=== PATIENT | female | born 1965 | race Caucasian/White ===

== ENCOUNTER 2017-03-16 09:34 | Emergency (ER) | payer BC, OTHER ==
[~2017-03-16] VITALS: Ht 165.1 cm; Wt 102.0 kg
[~2017-03-16 09:34] MED LIST: CO Q100C9 PO; FIORTAB4 PO; HYZA50TA2 PO; LORA10TA PO; PERC10TA27 PO; PROM25TA5 PO; SYNT175T PO; TAB-TAB PO
[2017-03-16 09:43] VITALS: BP 204/101; PULSE 98; RESP 17; TEMP 97.9; O2SAT 98
[2017-03-16] MEDS ORDERED: SODIUM CHLOR 0.9% 1000 ML INJ 1,000 ML IV ONE (09:45)
[2017-03-16] MEDS ORDERED: PROCHLORPERAZINE INJ 10 MG/2 ML VIAL IV PUSH ONE (09:45)
[2017-03-16] MEDS ORDERED: diphenhydrAMINE HCL 50 MG/ML VIAL IV PUSH ONE (09:45)
[2017-03-16] MEDS ORDERED: HYZA50TA2 PO (09:50)
[2017-03-16] MEDS ORDERED: PERC10TA27 PO (09:50)
[2017-03-16] MEDS ORDERED: LEVO.2 PO (09:50)
[2017-03-16] MEDS ORDERED: PROM25TA10 PO (09:50)
[2017-03-16] MEDS ORDERED: BUTA1CAP PO (09:50)
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
[2017-03-16 11:08] VITALS: BP 155/83; TEMP 97.8
== END 2017-03-16 11:09 | disposition home or self-care (01) ==
LOC: NEPD 09:34
DX: G43.909 Migraine, unspecified, not intractable, without status migrainosus (principal); M54.2 Cervicalgia; M54.5 Low back pain; Z79.899 Other long term (current) drug therapy
CPT/HCPCS: 96361; 96374; 96375; 99284; J0780; J1200; J7030